=== PATIENT | male | born 1960 ===

== ENCOUNTER 2020-06-28 11:47 | Emergency (ER) | payer BC ==
[2020-06-28] MEDS ORDERED: Sodium Chloride 0.9% 1,000 ML IV ONE ×3 (12:09→14:25)
[2020-06-28] MEDS ORDERED: Sodium Chloride 0.9% 10 ML Syringe FLUSH PRN ×2 (12:09→12:29)
[2020-06-28] MEDS ORDERED: Acetaminophen 500 MG Tab PO ONE (12:31)
[2020-06-28] MEDS ORDERED: Cefepime 2 GM Vial IVPUSH ONE (12:41)
[2020-06-28] MEDS ORDERED: HYDROmorphone 1 MG/ML Syringe IVPUSH ONE (12:41)
[2020-06-28] MEDS ORDERED: Ondansetron 4 MG/2 ML SDV IVPUSH ONE (12:41)
[2020-06-28 12:43] LABS: ANION GAP 12.9 mmol/L (5-15); CHLORIDE,CL 97 mmol/L (98-115); SODIUM,NA 135 mmol/L (136-145)
--- NOTE | 2020-06-28 12:53 | EDM.PDOC ---
ED HPI GENERAL MEDICAL PROBLEM - General Chief Complaint: Abdominal Pain Stated Complaint: ABDOMINAL PAIN Time Seen by Provider: 06/28/20 12:15 Source of Information: Reports: Patient History Limitations: Reports: No Limitations - History of Present Illness INITIAL COMMENTS - FREE TEXT/NARRATIVE: 59 YO WM PRESENTS TO ER COMPLAINING OF LOWER ABDOMINAL PAIN WITH FEVER X 5 DAYS. PT REPORTS LOOSE STOOL EARLY LAST WEEK FOLLOWED BY BILATERAL LOWER ABDOMINAL PAIN AND FEVER. PT REPORTS NO COUGH/CONGESTION, NO CHEST PAIN OR SHORTNESS OF BREATH, NO KNOWN COVID EXPOSURES. PT REPORTS LAST NIGHT HIS ABDOMINAL PAIN LOCALIZED TO RLQ PROMPTING ER EVALUATION. PT DENIES PREVIOUS ABDOMINAL SURGERY OR GI INFECTIONS IN THE PAST. PT REPORTS DECREASED APPETITE. PT DENIES NAUSEA/VOMITING, NO BLOODY STOOL OR CONSTIPATION. Onset Date: 06/22/20 Duration: Day(s): (5) Location: Reports: Abdomen Quality: Reports: Ache Severity: Moderate Improves with: Reports: None Worsens with: Reports: Movement Associated Symptoms: Reports: Fever/Chills, Headaches. 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 Right Lower Abdominal Pain Score (Numeric/FACES): 10 - Related Data Allergies Allergy/AdvReac Type Severity Reaction Status Date / Time No Known Drug Allergies Allergy Cannot Verified 06/28/20 12:17 Remember Home Meds: Home Meds Omeprazole 20 mg PO DAILY 09/20/18 [History] Losartan [Cozaar] 50 mg PO DAILY 06/28/20 [History] hydroCHLOROthiazide [Hydrochlorothiazide] 12.5 mg PO DAILY 06/28/20 [History] Past Medical History HEENT History: Reports: Allergic Rhinitis Cardiovascular History: Reports: Hypertension Gastrointestinal History: Reports: GERD Genitourinary History: Reports: Renal Calculus Neurological History: Reports: None - Infectious Disease History Infectious Disease History: Reports: Chicken Pox, Measles - Past Surgical History Head Surgeries/Procedures: Reports: None HEENT Surgical History: Reports: Adenoidectomy, Tonsillectomy Cardiovascular Surgical History: Reports: None GI Surgical History: Reports: Colonoscopy Male Surgical History: Reports: None Neurological Surgical History: Reports: None Social & Family History - Family History Family Medical History: Noncontributory - Caffeine Use Caffeine Use: Reports: Coffee, Soda Other Caffeine Use: DIET COKE AND [place]W ED ROS GENERAL - Review of Systems Review Of Systems: See Below Constitutional: Reports: Fever, Chills, Malaise HEENT: Reports: No Symptoms Respiratory: Reports: No Symptoms Cardiovascular: Reports: No Symptoms Endocrine: Reports: No Symptoms GI/Abdominal: Reports: Abdominal Pain, Anorexia, Diarrhea, Decreased Appetite. Denies: Black Stool, Bloody Stool, Constipation, Hematemesis, Hematochezia, Melena, Nausea, Vomiting : Reports: No Symptoms Musculoskeletal: Reports: No Symptoms Skin: Reports: No Symptoms Neurological: Reports: No Symptoms Psychiatric: Reports: No Symptoms Hematologic/Lymphatic: Reports: No Symptoms Immunologic: Reports: No Symptoms ED EXAM, GI/ABD - Physical Exam Exam: See Below Exam Limited By: No Limitations General Appearance: Alert, WD/WN, No Apparent Distress Nose: Normal Inspection, Normal Mucosa, No Blood Throat/Mouth: Normal Inspection, Normal Lips, Normal Teeth, Normal Gums, Normal Oropharynx, Normal Voice, No Airway Compromise Head: Atraumatic, Normocephalic Neck: Normal Inspection, Supple, Non-Tender, Full Range of Motion Respiratory/Chest: No Respiratory Distress, Lungs Clear, Normal Breath Sounds, No Accessory Muscle Use, Chest Non-Tender Cardiovascular: Normal Peripheral Pulses, Regular Rate, Rhythm, No Edema, No Gallop, No JVD, No Murmur, No Rub GI/Abdominal Exam: Normal Bowel Sounds, Soft, No Organomegaly, No Distention, No Abnormal Bruit, No Mass, Pelvis Stable, Guarding, Tender (RLQ>SUPRAPUBIC>LLQ) Back Exam: Normal Inspection, Full Range of Motion, NT Extremities: Normal Inspection, Normal Range of Motion, Non-Tender, Normal Capillary Refill, No Pedal Edema Neurological: Alert, Oriented, CN II-XII Intact, Normal Cognition, Normal Gait, Normal Reflexes, No Motor/Sensory Deficits Psychiatric: Normal Affect, Normal Mood Skin Exam: Warm, Dry, Intact, Normal Color, No Rash Lymphatic: No Adenopathy Course - Vital Signs Last Recorded V/S: Last Vital Signs Temp 38.1 C 06/28/20 13:11 Pulse 102 H 06/28/20 12:11 Resp 24 H 06/28/20 12:11 BP 126/75 06/28/20 12:11 Pulse Ox 94 L 06/28/20 12:11 - Orders/Labs/Meds Orders: Active Orders 24 hr Category Date Time Status Blood Pressure Mgt: Sepsis [RC] Q15MX2 Care 06/28/20 12:30 Ordered Peripheral IV Care [RC] . DIRECTED Care 06/28/20 12:09 Active Abdomen Pelvis w Cont [CT] Stat Exams 06/28/20 12:31 Ordered Chest 2V [CR] Stat Exams 06/28/20 12:29 Ordered CULTURE BLOOD [BC] Stat Lab 06/28/20 12:30 Ordered CULTURE BLOOD [BC] Stat Lab 06/28/20 12:30 Ordered Sodium Chloride 0.9% [Normal Saline] 50 ml Med 06/28/20 13:45 Active IV ASDIRECTED Sodium Chloride 0.9% [Saline Flush] Med 06/28/20 12:09 Active 10 ml FLUSH Q8HR PRN Blood Culture x2 Reflex Set [OM.PC] Stat Oth 06/28/20 12:29 Ordered Peripheral IV Insertion Adult [OM.PC] Routine Oth 06/28/20 12:09 Ordered Severe Sepsis Onset Time [OM.PC] Stat Oth 06/28/20 12:29 Ordered Medication Orders Sodium Chloride (Normal Saline) 50 mls @ 200 mls/hr IV ASDIRECTED ELSI Last Admin: 06/28/20 13:14 Dose: 200 mls/hr Documented by: YARITZA Sodium Chloride (Saline Flush) 10 ml FLUSH Q8HR PRN PRN Reason: keep vein open Last Admin: 06/28/20 12:05 Dose: 10 ml Documented by: HSIRLEY Labs: Laboratory Tests 06/28/20 06/28/20 06/28/20 Range/Units 12:05 12:05 12:05 WBC 13.41 H (5.00-10.00) 10^3/uL RBC 4.92 (4.50-6.00) 10^6/uL Hgb 14.2 (13.0-17.0) g/dL Hct 42.7 (40.0-52.0) % MCV 86.8 (82.0-92.0) fL MCH 28.9 (27.0-31.0) pg MCHC 33.3 (32.0-36.0) g/dL RDW 12.2 (11.5-14.5) % Plt Count 187 (150-400) 10^3/uL MPV 9.8 (7.4-10.4) fL Immature Gran % (Auto) 0.2 (0.0-5.0) % Neut % (Auto) 87.8 H (50.0-70.0) % Lymph % (Auto) 3.4 L (20.0-40.0) % [place] % (Auto) 8.1 H (2.0-8.0) % Eos % (Auto) 0.4 L (1.0-3.0) % Baso % (Auto) 0.1 (0.0-1.0) % Neut # (Auto) 11.75 H (2.50-7.00) 10^3/uL Lymph # (Auto) 0.46 L (1.00-4.00) 10^3/uL [place] # (Auto) 1.09 H (0.10-0.80) 10^3/uL Eos # (Auto) 0.06 L (0.10-0.30) 10^3/uL Baso # (Auto) 0.02 (0.00-0.10) 10^3/uL Immature Gran # (Auto) 0.03 (0.00-0.50) 10^3/uL Sodium 135 L (136-145) mmol/L Potassium 3.5 (3.3-5.3) mmol/L Chloride 97 L (98-115) mmol/L Carbon Dioxide 28.6 (21.0-32.0) mmol/L Anion Gap 12.9 (5-15) mmol/L BUN 20 (6-25) mg/dL Creatinine 1.14 (0.51-1.17) mg/dL Est Cr Clr Drug Dosing 70.26 mL/min Estimated GFR (MDRD) > 60 mL/min Glucose 124 H (75 - 99) mg/dL Lactic Acid 0.9 (0.4-2.0) mmol/L Calcium 8.5 L (8.7-10.3) mg/dL Total Bilirubin 2.0 H (0.2-1.0) mg/dL AST 33 (15-37) U/L ALT 61 (12-78) U/L Alkaline Phosphatase 82 (46-116) IU/L Total Protein 7.1 (6.4-8.2) g/dL Albumin 2.90 L (3.00-4.80) g/dL Lipase (73-393) U/L Specimen Type Urine Color (YELLOW) Urine Appearance (CLEAR) Urine pH (5.0-9.0) Ur Specific [place] (1.005-1.030) Urine Protein (NEGATIVE) mg/dL Urine Glucose (UA) (NEGATIVE) mg/dL Urine Ketones (NEGATIVE) mg/dL Urine Occult Blood (NEGATIVE) Urine Nitrite (NEGATIVE) Urine Bilirubin (NEGATIVE) Urine Urobilinogen (0.2-1.0) E.U./dL Ur Leukocyte Esterase (NEGATIVE) Urine RBC (0-5) /HPF Urine WBC (0-5) /HPF Ur Epithelial Cells /LPF Urine Bacteria (NONE TO FEW) /HPF 06/28/20 06/28/20 Range/Units 12:05 13:32 WBC (5.00-10.00) 10^3/uL RBC (4.50-6.00) 10^6/uL Hgb (13.0-17.0) g/dL Hct (40.0-52.0) % MCV (82.0-92.0) fL MCH (27.0-31.0) pg MCHC (32.0-36.0) g/dL RDW (11.5-14.5) % Plt Count (150-400) 10^3/uL MPV (7.4-10.4) fL Immature Gran % (Auto) (0.0-5.0) % Neut % (Auto) (50.0-70.0) % Lymph % (Auto) (20.0-40.0) % [place] % (Auto) (2.0-8.0) % Eos % (Auto) (1.0-3.0) % Baso % (Auto) (0.0-1.0) % Neut # (Auto) (2.50-7.00) 10^3/uL Lymph # (Auto) (1.00-4.00) 10^3/uL [place] # (Auto) (0.10-0.80) 10^3/uL Eos # (Auto) (0.10-0.30) 10^3/uL Baso # (Auto) (0.00-0.10) 10^3/uL Immature Gran # (Auto) (0.00-0.50) 10^3/uL Sodium (136-145) mmol/L Potassium (3.3-5.3) mmol/L Chloride (98-115) mmol/L Carbon Dioxide (21.0-32.0) mmol/L Anion Gap (5-15) mmol/L BUN (6-25) mg/dL Creatinine (0.51-1.17) mg/dL Est Cr Clr Drug Dosing mL/min Estimated GFR (MDRD) mL/min Glucose (75 - 99) mg/dL Lactic Acid (0.4-2.0) mmol/L Calcium (8.7-10.3) mg/dL Total Bilirubin (0.2-1.0) mg/dL AST (15-37) U/L ALT (12-78) U/L Alkaline Phosphatase (46-116) IU/L Total Protein (6.4-8.2) g/dL Albumin (3.00-4.80) g/dL Lipase 78 (73-393) U/L Specimen Type Urinvoid Urine Color Yellow (YELLOW) Urine Appearance Slightly cloudy H (CLEAR) Urine pH 6.0 (5.0-9.0) Ur Specific [place] 1.015 (1.005-1.030) Urine Protein 100 H (NEGATIVE) mg/dL Urine Glucose (UA) Negative (NEGATIVE) mg/dL Urine Ketones 15 H (NEGATIVE) mg/dL Urine Occult Blood Trace-lysed H (NEGATIVE) Urine Nitrite Negative (NEGATIVE) Urine Bilirubin Small H (NEGATIVE) Urine Urobilinogen 4.0 H (0.2-1.0) E.U./dL Ur Leukocyte Esterase Negative (NEGATIVE) Urine RBC 0-5 (0-5) /HPF Urine WBC 0-5 (0-5) /HPF Ur Epithelial Cells Few /LPF Urine Bacteria Few (NONE TO FEW) /HPF Meds: Medications Generic Name Dose Route Start Last Admin Trade Name Freq PRN Reason Stop Dose Admin Sodium Chloride 50 mls @ 200 mls/hr 06/28/20 13:45 06/28/20 13:14 Normal Saline IV 200 mls/hr ASDIRECTED ELSI Administration Sodium Chloride 10 ml 06/28/20 12:09 06/28/20 12:05 Saline Flush FLUSH 10 ml Q8HR PRN Administration keep vein open Discontinued Medications Generic Name Dose Route Start Last Admin Trade Name Calebq PRN Reason Stop Dose Admin Acetaminophen 1,000 mg 06/28/20 12:31 06/28/20 12:41 Tylenol Extra Strength PO 06/28/20 12:32 1,000 mg ONETIME ONE Administration Cefepime HCl 2 gm 06/28/20 12:41 06/28/20 13:18 Maxipime IVPUSH 06/28/20 12:42 2 gm ONETIME ONE Administration Hydromorphone HCl 1 mg 06/28/20 12:41 06/28/20 12:48 Dilaudid IVPUSH 06/28/20 12:42 1 mg ONETIME ONE Administration Sodium Chloride 1,000 mls @ 999 mls/hr 06/28/20 12:09 06/28/20 12:39 Normal Saline IV 06/28/20 13:09 999 mls/hr .BOLUS ONE Administration Sodium Chloride 1,000 mls @ 1,000 drops/hr 06/28/20 12:29 Normal Saline IV 06/29/20 03:28 BOLUS ONE Iopamidol 100 ml 06/28/20 13:43 06/28/20 13:14 Isovue-370 (76%) IV 06/28/20 13:44 75 ml ONETIME ONE Administration Ondansetron HCl 4 mg 06/28/20 12:41 06/28/20 12:46 Zofran IVPUSH 06/28/20 12:42 4 mg ONETIME ONE Administration Sodium Chloride 10 ml 06/28/20 12:29 Saline Flush FLUSH Q8HR PRN keep vein open - Radiology Interpretation Free Text/Narrative:: CT ABD/PELVIS- RUPTURED APPY WITH FLUID COLLECTION CONSISTENT WITH ABSCESS Departure - Departure Time of Disposition: 14:32 Disposition: DC/Tfer to Acute Hospital 02 Condition: Serious Clinical Impression: Appendicitis with abscess - Discharge Information Referrals: Monae Granados MD [Primary Care Provider] - Forms: ED Department Discharge, [facility] Event Note (ED) - Evaluation Sepsis Screening Result: Possible Sepsis Risk - Focused Exam Vital Signs: Vital Signs Temp Temp Pulse Resp BP Pulse Ox 06/28/20 13:11 38.1 C 06/28/20 12:41 38.8 C H 06/28/20 12:11 38.8 C H 102 H 24 H 126/75 94 L - My Orders Last 24 Hours: My Active Orders 06/28/20 12:09 Peripheral IV Care [RC] . DIRECTED Sodium Chloride 0.9% [Saline Flush] 10 ml FLUSH Q8HR PRN Peripheral IV Insertion Adult [OM.PC] Routine 06/28/20 12:29 Chest 2V [CR] Stat Blood Culture x2 Reflex Set [OM.PC] Stat Severe Sepsis Onset Time [OM.PC] Stat 06/28/20 12:30 Blood Pressure Mgt: Sepsis [RC] Q15MX2 CULTURE BLOOD [BC] Stat CULTURE BLOOD [BC] Stat 06/28/20 12:31 Abdomen Pelvis w Cont [CT] Stat 06/28/20 13:45 Sodium Chloride 0.9% [Normal Saline] 50 ml IV ASDIRECTED - Assessment/Plan Last 24 Hours: My Active Orders 06/28/20 12:09 Peripheral IV Care [RC] . DIRECTED Sodium Chloride 0.9% [Saline Flush] 10 ml FLUSH Q8HR PRN Peripheral IV Insertion Adult [OM.PC] Routine 06/28/20 12:29 Chest 2V [CR] Stat Blood Culture x2 Reflex Set [OM.PC] Stat Severe Sepsis Onset Time [OM.PC] Stat 06/28/20 12:30 Blood Pressure Mgt: Sepsis [RC] Q15MX2 CULTURE BLOOD [BC] Stat CULTURE BLOOD [BC] Stat 06/28/20 12:31 Abdomen Pelvis w Cont [CT] Stat 06/28/20 13:45 Sodium Chloride 0.9% [Normal Saline] 50 ml IV ASDIRECTED Assessment:: 1. RUPTURED APPENDICITIS WITH ABSCESS Plan: 1. TRANSFER TO [facility] FOR SURGICAL EVALUATION AND HIGHER LEVEL OF CARE- DR BENTLEY ACCEPTING 2. CEFEPIME 2G IV GIVEN 3. PAIN CONTROL 4. FLUIDS- NS@125CC/HR 5. SUPPORTIVE CARE
[2020-06-28] MEDS ORDERED: Iopamidol 755 Mg/ML 100 ML Bottle IV ONE (13:43)
[2020-06-28] MEDS ORDERED: Sodium Chloride 0.9% 50 ML IV SCH (13:45)
--- NOTE | 2020-06-28 14:13 | CR ---
[id number] RAD/RAD Chest PA And Lateral EXAM: RAD Chest PA And Lateral CLINICAL DATA: FEVER COMPARISON: CORRELATION IS MADE WITH SEPTEMBER 20, 2018 FINDINGS: The lungs are clear There is an old left rib fracture The cardiac silhouette is stable IMPRESSION: NO ACUTE PROCESS. Amrit Lance MD 06/28/20 [id number] Thank you for allowing us to participate in the care of your patient.
--- NOTE | 2020-06-28 14:19 | CT ---
[id number] CT/CT Abdomen Pelvis W IV EXAM: ABDOMEN AND PELVIS CT WITH CONTRAST INDICATION: PAIN. COMPARISON: None. DISCUSSION: There are inflammatory changes extending inferiorly from the cecum with an associated 6.3 x 4.0 x 3.0 cm fluid collection. These changes are most consistent with perforated appendicitis, but the advanced nature of inflammatory changes obscure the underlying appendiceal anatomy with only a portion of the base visible. Inflammatory changes involving the terminal ileum are likely secondary/reactive. Small fat-containing right inguinal hernia. Mild to moderate prostatomegaly. Scattered diverticula of the colon without evidence of diverticulitis. Probable fatty infiltration of the liver. 14 mm hypodensity in the right lobe of the liver, favor cyst. Mild splenomegaly. The gallbladder, pancreas, adrenal glands, kidneys, and small bowel are normal in appearance. No free air or significant free fluid. Degenerative changes in the spine. The osseous structures are otherwise unremarkable IMPRESSION: 1. Findings most consistent with ruptured appendicitis with a 63 x 40 x 30 mm right lower quadrant fluid collection likely representing an abscess. 2. Mild to moderate inflammatory changes in the terminal ileum are likely reactive/secondary to appendicitis. Papi Hinson MD 06/28/20 [id number] Thank you for allowing us to participate in the care of your patient.
== END 2020-06-28 15:10 ==
LOC: KA.ED 11:47
DX: K35.33 Acute appendicitis with perforation, localized peritonitis, and gangrene, with abscess (principal); I10 Essential (primary) hypertension; K21.9 Gastro-esophageal reflux disease without esophagitis; Z79.899 Other long term (current) drug therapy
CPT/HCPCS: 36415; 71046; 74177; 80053; 81001; 83605; 83690; 85025; 87040; 96361; 96374; 96375; 99284; 99285; A9270; J0692; J1170; J2405; J7030; J7050; Q9967